=== PATIENT | male | born 1970 | race African-American/Black ===

== ENCOUNTER 2017-01-22 11:17 | Day surgery (SDC) | payer OTHER ==
[2017-01-18 10:05] VITALS: BMI 23.3
[2017-01-22] MEDS ORDERED: ROPIVACAINE HCL 0.5% 30ML VIAL ONE (12:42)
[2017-01-22] MEDS ORDERED: DEXAMETHASONE SOD PHOSPHATE/PF 10 MG/ML SDV ONE (12:42)
[2017-01-22] MEDS ORDERED: MIDAZOLAM HCL 2 MG/2 ML SINGLE DOSE VIAL ONE ×2 (12:42→13:54)
[2017-01-22] MEDS ORDERED: PROPOFOL 20 ML ONE (14:11)
[2017-01-22] MEDS ORDERED: DEXAMETHASONE SOD PHOSPHATE 4 MG/1 ML VIAL ONE (14:48)
[2017-01-22] MEDS ORDERED: ONDANSETRON 4 MG/2 ML VIAL ONE (14:48)
[2017-01-22] MEDS ORDERED: ceFAZolin SODIUM 1 GM VIAL ONE (14:48)
[2017-01-22] MEDS ORDERED: HYDROmorphone HCL/PF 1 MG/ML VIAL (FOR PYXIS CHARGING ONLY) ONE (16:14)
[2017-01-22] MEDS ORDERED: oxyCODONE HCL 5 MG TABLET PO PRN (17:16)
[2017-01-22] MEDS ORDERED: PROMETHAZINE HCL 25 MG/1 ML VIAL IVPUSH PRN (17:16)
[2017-01-22] MEDS ORDERED: ONDANSETRON 4 MG/2 ML VIAL IVPUSH PRN (17:16)
[2017-01-22] MEDS ORDERED: LACTATED RINGERS SOLUTION 1,000 ML IV SCH (17:30)
[2017-01-22] MEDS: oxyCODONE HCL 5 MG TABLET PO PRN (20:58)
[2017-01-22] MEDS ORDERED: CEFAZOLIN 1 GM in DEXTROSE 5%-WATER - 50 ML IVPB ONE (23:43)
[2017-01-23] MEDS: oxyCODONE HCL 5 MG TABLET PO PRN ×2 (05:00→10:00)
[2017-01-23] MEDS ORDERED: CEFAZOLIN 1 GM in DEXTROSE 5%-WATER - 50 ML IVPB ONE (05:07)
[2017-01-23 05:59] VITALS: TEMP 99
[2017-01-23 06:39] VITALS: BP 135/83; PULSE 81
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
--- NOTE | 2017-01-26 14:33 | PATH ---
Surgical Pathology Report Patient Name: CHASE VALDEZ [facility]. Rec. #: [id number] /Age/Gender: 1970 (Age: 46) / M Account: [id number] Location: [facility] AMBUL[facility] Taken: 01/22/2017 Received: 01/22/2017 Reported: 01/26/2017 Physicians: Ventura Mooney M.D. Specimen(s) Received A: RIGHT KNEE SHAVINGS B: RIGHT KNEE HARDWARE Clinical History Internal derangement right knee Final Diagnosis A. KNEE, RIGHT, ARTHROSCOPIC SHAVING: FIBROCARTILAGE WITH MYXOID DEGENERATIVE CHANGES, ALONG WITH PORTIONS OF SYNOVIUM, BONE AND HYALINE CARTILAGE. B. ORTHOPEDIC HARDWARE, RIGHT KNEE, REMOVAL: METALLIC HARDWARE AND PORTIONS OF SUTURE (GROSS ONLY). Electronically Signed Guerrero Post M.D. Gross Description A. Received in formalin, labeled "right knee shavings," is a 4.5 x 3.5 x 0.6 cm. aggregate of longoria-yellow soft tissue fragments. A auto service representative portion is submitted in one cassette. B. Received fresh labeled "right knee hardware," is a 1.2 x 0.3 x 0.1 cm portion of lora metallic hardware. Also received within the same container are 3 portions of suture material. No soft tissue is present. No sections are submitted, gross only. 01/25/201701/25/2017
== END 2017-01-23 14:30 | disposition home or self-care (01) ==
LOC: FASU 11:17 → FM/S 20:55 → FASU 01-23 14:30
PROVIDERS: ATTEND Orthopaedic Surgery Sports Medicine
PROC: 0MUN47Z Supplement Right Knee Bursa and Ligament with Autologous Tissue Substitute, Percutaneous Endoscopic Approach (ICD-10-PCS; 2017-01-22)
PROC: 0SBC4ZZ Excision of Right Knee Joint, Percutaneous Endoscopic Approach (ICD-10-PCS; principal; 2017-01-22 15:10)
DX: M17.31 Unilateral post-traumatic osteoarthritis, right knee (principal); M25.362 Other instability, left knee; T84.410A Breakdown (mechanical) of muscle and tendon graft, initial encounter; M23.261 Derangement of other lateral meniscus due to old tear or injury, right knee; M67.261 Synovial hypertrophy, not elsewhere classified, right lower leg
CPT/HCPCS: 87070; 87205; 88300-TC; 88304-TC; 94760; 97116-GP